=== PATIENT | female | born 1990 | race Hispanic/Latino ===

== ENCOUNTER 2017-06-28 03:48 | Outpatient (CLI) | payer OTHER, BC ==
[2017-06-28 04:24] VITALS: BP 138/85
[2017-06-28] MEDS ORDERED: LACTATED RINGERS 500 ML IV ONE (04:42)
[2017-06-28] MEDS ORDERED: LACTATED RINGERS 1,000 ML ONE (05:04)
[2017-06-28 05:33] LABS: Bilirubin,Urine NEG (Negative); Blood,Urine LG (Negative); Color,Urine Yellow (Yellow); Mucus,Urine FEW /HPF; Urobilinogen,Urine < 2.0 mg/dL (<2.0)
[2017-06-28 05:34] LABS: RBC,Urine > 182.0 /HPF (0.0-6.0)
--- NOTE | 2017-06-28 06:17 | Event Note ---
Date: 06/28/17 (pt expresses she has appt [facility] with [facility] today and in our office) It had not been conveyed to me that pt was here for vaginal bleeding. Just ctx. Which had spaced out and become very mild with hydration. Pt showed me a picture of when she went to the toilet this morning, there appeared to be a moderate size blood clot in the toilet. Will get US for vaginal bleeding and to assess the placenta. NST Cat 1 reactive. No vaginal bleeding noted on my exam. Cervix closed per RN exam. All questions addressed.
--- NOTE | 2017-06-28 06:46 | Ultrasound Report ---
FINAL REPORT EXAM: US OB LIMITED HISTORY: VAGINAL BLEEDING COMPARISONS: None. FINDINGS: Transabdominal limited 3rd 3rd trimester grayscale and color Doppler ultrasound Single living intrauterine with recorded cardiac activity of 138 beats per minute. Amniotic fluid index measures approximately 9.7 cm. Anterior placenta. No evident previa. Cephalic presentation with the head interposed between the region of the cervix and the inferior placenta. IMPRESSION: Single living intrauterine 3rd trimester with normal amniotic fluid index.
--- NOTE | 2017-06-28 07:08 | Event Note ---
Date: 06/28/17 (pt d/c to go to [facility] Appt @ 0800) US no evidence abruption Pt will keep appt with [facility] @ 0800 this morning. Appt for our office is scheduled for Wednesday @ 1045. Pt agrees with appt time and date. No further c/o bleeding. Reports good FM. Only occasional cramping felt.
== END 2017-06-28 07:23 | disposition home or self-care (01) ==
LOC: TRG 03:48
PROVIDERS: ATTEND Obstetrics & Gynecology
DX: O46.93 Antepartum hemorrhage, unspecified, third trimester (principal); O62.9 Abnormality of forces of labor, unspecified; Z3A.32 32 weeks gestation of pregnancy
CPT/HCPCS: 59025; 76815; 81001; 96360; J7120